=== PATIENT | male | born 1970 | race Caucasian/White ===

== ENCOUNTER 2020-04-08 02:17 | Emergency (ER) | payer OTHER ==
[~2020-04-08] VITALS: Ht 175.3 cm; Wt 81.6 kg
--- NOTE | 2020-04-08 02:22 | NUR ---
dr mckenzie at bed side
--- NOTE | 2020-04-08 02:27 | NUR ---
Patient does not wish to proceed with medical care recommended by Dr. Velazquez. Patient given information related to possible complications, up to and including , which could occur as a result of leaving the hospital at this time. Patient verbalizes understanding of risks involved due to leaving against medical advice. Patient has signed AMA form.
[2020-04-08 02:30] VITALS: BP 130/93
[2020-04-08] MEDS ORDERED: NITROGLYCERIN 0.4 MG/TAB BOTTLE SL ONE (02:30)
[2020-04-08] MEDS ORDERED: ASPIRIN 325 MG TABLET PO ONE (02:30)
== END 2020-04-08 02:32 | disposition left against medical advice (07) ==
LOC: ER 02:21
DX: R07.89 Other chest pain (principal); F41.9 Anxiety disorder, unspecified; I10 Essential (primary) hypertension